=== PATIENT | male | born 1960 | race Caucasian/White ===

== ENCOUNTER 2018-08-18 05:58 | Observation (INO) | payer BC ==
[2018-08-18 06:18] LABS: ADD MAN DIFF? NO
[2018-08-18 06:24] LABS: WHITE BLOOD COUNT 6.9 10^3/ul (4.8-10.8)
[2018-08-18 06:24] LABS: BASOPHIL # 0.1 10^3/ul (0.0-0.1); BASOPHILS % 1.2 % (0.0-2.0); EOSINOPHILS # 0.2 10^3/ul (0.0-0.5); EOSINOPHILS % 3.1 % (0.0-7.0); HEMATOCRIT 46.9 % (42.0-52.0); HEMOGLOBIN 15.4 g/dl (14.0-18.0); LYMPHOCYTES # 2.4 10^3/ul (0.8-2.9); LYMPHOCYTES % 34.9 % (15.0-51.0); MEAN CORPUSCULAR HEMOGLOBIN 30.4 pg (29.0-33.0); MEAN CORPUSCULAR HGB CONC 32.8 g/dl (32.0-37.0); MEAN CORPUSCULAR VOLUME 92.5 fl (82.0-101.0); MEAN PLATELET VOLUME 10.3 fl (7.4-10.4); MONOCYTE # 0.6 10^3/ul (0.3-0.9); MONOCYTES % 8.8 % (0.0-11.0); NEUTROPHIL # 3.6 10^3/ul (1.6-7.5); NEUTROPHILS % 51.7 % (39.0-77.0); PLATELET COUNT 192 10^3/UL (140-415); RED BLOOD COUNT 5.07 10^6/ul (4.70-6.10); RED CELL DISTRIBUTION WIDTH 13.7 % (11.5-14.5)
[2018-08-18 06:40] LABS: CREATINE KINASE 93 IU/L (23-200)
[2018-08-18 06:44] LABS: ALANINE AMINOTRANSFERASE 32 IU/L (13-69); ALBUMIN 4.5 g/dl (3.3-4.9); ALBUMIN/GLOBULIN RATIO 1.36; ALKALINE PHOSPHATASE 96 IU/L (42-121); ANION GAP 9 (5-13); ASPARTATE AMINO TRANSFERASE 27 IU/L (15-46); BILIRUBIN,INDIRECT 0.6 mg/dl (0-1.1); BILIRUBIN,TOTAL 0.6 mg/dl (0.2-1.3); CALCIUM 9.8 mg/dl (8.4-10.2); CARBON DIOXIDE 28 mmol/L (21-31); CHLORIDE 106 mmol/L (97-110); CHOL/HDL RATIO 3.2 RATIO; CHOLESTEROL 128 mg/dl (100-200); CREATININE 0.98 mg/dl (0.61-1.24); Estimated GFR > 60 mL/min (>60); GLUCOSE 106 mg/dl (70-220); LDL CHOLESTEROL,CALCULATED 64 mg/dl; SODIUM 143 mmol/L (135-144); TOTAL PROTEIN 7.8 g/dl (6.1-8.1); TRIGLYCERIDES 123 mg/dl (0-149)
[2018-08-18 06:52] LABS: CK INDEX 0.8; CK-MB 0.76 ng/ml (0.0-2.4); TROPONIN-I < 0.012 ng/ml (0.000-0.120)
[2018-08-18] MEDS ORDERED: BIVALIRUDIN 250 MG/50 ML NS BAG IVPB (07:00)
[2018-08-18 07:03] LABS: HDL CHOLESTEROL 39 mg/dl (28-71)
[2018-08-18] MEDS ORDERED: LIDOCAINE 1% (MDV) 20 ML INJ (07:05)
[2018-08-18] MEDS ORDERED: FENTAnyl 50 MCG/ML VIAL ×2 (07:05→08:21)
[2018-08-18] MEDS ORDERED: MIDAZOLAM 1 MG/ML 2 ML INJ ×2 (07:05→08:21)
[2018-08-18] MEDS ORDERED: IODIXANOL LOCM 100 ML BTL (07:05)
[2018-08-18 07:06] LABS: BLOOD UREA NITROGEN 22 mg/dl (7-20)
[2018-08-18] MEDS ORDERED: HEPARIN 1000 UNITS/ML 10 ML INJ (07:23)
[2018-08-18] MEDS ORDERED: NITROGLYCERIN (IC) 100 MCG/ML INJ ×2 (07:23→08:28)
[2018-08-18] MEDS ORDERED: VERAPAMIL 5 MG INJ ×2 (07:23→08:44)
[2018-08-18 07:39] LABS: INR 0.86; PARTIAL THROMBOPLASTIN TIME 28.8 Sec (23.0-35.0); PROTIME 11.8 Sec (11.9-14.9); PT RATIO 0.9
[2018-08-18] MEDS ORDERED: ASPIRIN 325 MG TAB (09:03)
[2018-08-18] MEDS ORDERED: CLOPIDOGREL 300 MG TAB (09:03)
[2018-08-18] MEDS ORDERED: SOD CHLORIDE 0.9% 1,000 ML IV (09:04)
[2018-08-18] MEDS ORDERED: ACETAMINOPHEN 325 MG TAB PO (09:30)
[2018-08-18] MEDS ORDERED: morphine 2 MG INJ IV (09:30)
[2018-08-18] MEDS: OXYCODONE/ACETAMINOPHEN (5/325) TAB PO (16:27)
== END 2018-08-18 19:34 | disposition home or self-care (01) ==
LOC: CCL 05:58 → SDS 05:58 → CCL 09:03 → REC 09:04 → TEL 11:50
DX: I25.118 Atherosclerotic heart disease of native coronary artery with other forms of angina pectoris (principal); I10 Essential (primary) hypertension; R79.89 Other specified abnormal findings of blood chemistry
CPT/HCPCS: 80053; 80061; 82550; 82553; 84484; 85025; 85610; 85730; 92920; 92928; 93005; 93458; G0378